=== PATIENT | female | born 1950 | race American Indian/Alaskan Native ===

== ENCOUNTER 2022-02-13 21:26 | Inpatient (IN) | payer MEDICARE ==
[2022-02-13 23:51] LABS: Basophils % (Auto) 0.2 % (0.0-1.8); Hematocrit 20.9 % (30.3-42.9); Hemoglobin 6.8 gm/dl (10.1-14.3); Lymphocytes # (Auto) 0.7 K/mm3 (1.2-5.4); Lymphocytes % (Auto) 7.6 % (13.4-35.0); Mean Corpuscular HGB Conc 33 % (30-34); Mean Corpuscular Volume 87 fl (79-97); Monocytes # (Auto) 0.5 K/mm3 (0.0-0.8); Monocytes % (Auto) 5.4 % (0.0-7.3); Platelet Count 184 K/mm3 (140-440); Red Blood Count 2.39 M/mm3 (3.65-5.03); Red Cell Distribution Width 16.1 % (13.2-15.2)
[2022-02-14 00:03] LABS: BUN/Creatinine Ratio 21; Blood Urea Nitrogen 21 mg/dL (7-17); Calcium 8.5 mg/dL (8.4-10.2); Hemolysis Index 2
[2022-02-14] MEDS ORDERED: SODIUM CHLORIDE 0.9% 500 ML 500 ML IV ONE ×3 (10:58→22:08)
[2022-02-14 12:26] LABS: Basophils % (Auto) 0.4 % (0.0-1.8); Eosinophils % (Auto) 0.6 % (0.0-4.3); Hemoglobin 6.3 gm/dl (10.1-14.3); Lymphocytes # (Auto) 0.8 K/mm3 (1.2-5.4); Lymphocytes % (Auto) 12.8 % (13.4-35.0); Mean Corpuscular HGB Conc 32 % (30-34); Mean Corpuscular Volume 87 fl (79-97); Monocytes # (Auto) 0.6 K/mm3 (0.0-0.8); Monocytes % (Auto) 8.7 % (0.0-7.3); Platelet Count 173 K/mm3 (140-440); Red Blood Count 2.22 M/mm3 (3.65-5.03); Red Cell Distribution Width 15.6 % (13.2-15.2)
[2022-02-14 13:05] LABS: Hematocrit 19.3 % (30.3-42.9)
--- NOTE | 2022-02-14 14:01 | Emergency Department Report ---
ED GI Bleed HPI - General Chief complaint: GI Bleed Stated complaint: BLEEDING FROM RECTUM Time Seen by Provider: 02/14/22 10:41 Source: patient Mode of arrival: Ambulatory Limitations: No Limitations - History of Present Illness Initial comments: 71-year-old female with a past medical history of diverticulosis presents to the hospital complaining of intermittent rectal bleeding for the past 5 days. Patient initially had bleeding 4 to 5 days ago. She had significant rectal bleeding even prior to making it to the bathroom and had a syncopal episode. Bleeding stopped and recurred last night. Patient denies abdominal pain, nausea, vomiting, chest pain, shortness of breath. She does continue to have intermittent lightheadedness with standing and ambulation. Last diverticular bleed was 2006 with need for blood transfusion at that time. Patient cannot recall when she received her most recent colonoscopy. - Related Data Home Medications Medication Instructions Recorded Confirmed Last Taken lisinopriL [Lisinopril] 20 mg PO QDAY 02/14/22 02/16/22 02/13/22 Previous Rx's Medication Instructions Recorded Last Taken Type Ferrous Gluconate [Fergon 240 MG 240 mg PO QDAY 100 Days #100 02/16/22 Unknown Rx tab] Allergies Allergy/AdvReac Type Severity Reaction Status Date / Time No Known Allergies Allergy Verified 02/16/22 07:14 ED Review of Systems ROS: Stated complaint: BLEEDING FROM RECTUM Other details as noted in HPI Comment: All other systems reviewed and negative ED Past Medical Hx - Past Medical History Previous Medical History?: Yes Additional medical history: diverticulitis - Social History Smoking Status: Never Smoker - Medications Home Medications: Home Medications Medication Instructions Recorded Confirmed Last Taken Type lisinopriL [Lisinopril] 20 mg PO QDAY 02/14/22 02/16/22 02/13/22 History Ferrous Gluconate [Fergon 240 MG 240 mg PO QDAY 100 Days #100 02/16/22 Unknown Rx tab] ED Physical Exam - General Limitations: No Limitations - Other Other exam information: General: No acute distress Head: Atraumatic Eyes: normal appearance ENT: Moist mucous membranes Neck: Normal appearance, no midline tenderness Chest: Clear to auscultation bilaterally CV: Regular rate and rhythm Abdomen: Soft, normal bowel sounds, nontender, nondistended, no rebound or guarding Rectal: No external hemorrhoids noted. maroon-colored blood in rectum. Guaiac positive Back: Normal inspection Extremity: Normal inspection, full range of motion Neuro: Alert O x 3, no facial asymmetry, speech clear, no gross motor sensory deficit Psych: Appropriate behavior Skin: No rash ED Course Vital Signs 02/13/22 02/14/22 02/14/22 21:26 08:53 09:00 Temperature 98.6 F Pulse Rate 97 H 96 H 87 Respiratory 18 18 Rate Blood Pressure 146/64 Blood Pressure 120/61 123/69 [Right] O2 Sat by Pulse 99 99 Oximetry 02/14/22 02/14/22 02/14/22 09:15 09:30 09:45 Temperature Pulse Rate 86 87 81 Respiratory Rate Blood Pressure 140/66 137/63 125/53 Blood Pressure [Right] O2 Sat by Pulse 100 100 100 Oximetry 02/14/22 02/14/22 02/14/22 10:00 10:15 11:30 Temperature Pulse Rate 83 85 85 Respiratory 17 Rate Blood Pressure 130/57 130/57 138/69 Blood Pressure [Right] O2 Sat by Pulse 99 100 100 Oximetry 02/14/22 02/14/22 02/14/22 11:45 12:00 12:15 Temperature Pulse Rate 85 86 83 Respiratory 20 17 16 Rate Blood Pressure 145/62 145/39 138/59 Blood Pressure [Right] O2 Sat by Pulse 98 99 100 Oximetry 02/14/22 02/14/22 02/14/22 12:25 12:30 12:45 Temperature 98.7 F Pulse Rate 87 86 85 Respiratory 18 19 14 Rate Blood Pressure 130/61 121/59 Blood Pressure 120/69 [Right] O2 Sat by Pulse 99 99 100 Oximetry 02/14/22 02/14/22 02/14/22 12:51 13:00 13:03 Temperature Pulse Rate 80 85 83 Respiratory 15 15 18 Rate Blood Pressure 121/59 130/61 Blood Pressure 129/59 [Right] O2 Sat by Pulse 99 100 99 Oximetry 02/14/22 02/14/22 02/14/22 13:04 13:10 13:35 Temperature 98.9 F Pulse Rate 80 96 H Respiratory 19 17 Rate Blood Pressure 121/59 145/39 Blood Pressure [Right] O2 Sat by Pulse 100 100 Oximetry 02/14/22 02/14/22 02/14/22 13:41 13:51 14:00 Temperature Pulse Rate 83 81 77 Respiratory 17 18 18 Rate Blood Pressure 145/39 140/58 145/71 Blood Pressure [Right] O2 Sat by Pulse 99 98 99 Oximetry 02/14/22 02/14/22 02/14/22 14:11 14:16 14:17 Temperature 98.3 F Pulse Rate 91 H 72 92 H Respiratory 20 18 16 Rate Blood Pressure 145/71 117/54 Blood Pressure 132/66 [Right] O2 Sat by Pulse 99 Oximetry 02/14/22 02/14/22 02/14/22 14:20 14:43 14:51 Temperature Pulse Rate 71 80 72 Respiratory 18 17 17 Rate Blood Pressure 145/71 145/71 107/51 Blood Pressure [Right] O2 Sat by Pulse 99 100 100 Oximetry 02/14/22 02/14/22 02/14/22 15:01 15:11 15:21 Temperature Pulse Rate 79 82 77 Respiratory 18 17 18 Rate Blood Pressure 107/51 107/51 145/71 Blood Pressure [Right] O2 Sat by Pulse 99 100 100 Oximetry 02/14/22 02/14/22 02/14/22 15:31 15:41 15:51 Temperature Pulse Rate 75 72 77 Respiratory 19 19 19 Rate Blood Pressure 145/71 145/71 121/57 Blood Pressure [Right] O2 Sat by Pulse 100 100 100 Oximetry - Consultations Consultation #1: 02/14/22 15:[address] Kevin Mc with GI. Recommend clear liquid diet. Will consult ED Medical Decision Making - Lab Data Result diagrams: 02/15/22 22:26 02/15/22 03:39 Lab Results 02/13/22 02/13/22 02/14/22 Range/Units 23:31 23:31 10:32 WBC 9.2 (4.5-11.0) K/mm3 RBC 2.39 L (3.65-5.03) M/mm3 Hgb 6.8 L (10.1-14.3) gm/dl Hct 20.9 L (30.3-42.9) % MCV 87 (79-97) fl MCH 29 (28-32) pg MCHC 33 (30-34) % RDW 16.1 H (13.2-15.2) % Plt Count 184 (140-440) K/mm3 Lymph % (Auto) 7.6 L (13.4-35.0) % [place] % (Auto) 5.4 (0.0-7.3) % Eos % (Auto) 0.0 (0.0-4.3) % Baso % (Auto) 0.2 (0.0-1.8) % Lymph # (Auto) 0.7 L (1.2-5.4) K/mm3 [place] # (Auto) 0.5 (0.0-0.8) K/mm3 Eos # (Auto) 0.0 (0.0-0.4) K/mm3 Baso # (Auto) 0.0 (0.0-0.1) K/mm3 Seg Neutrophils % 86.8 H (40.0-70.0) % Seg Neutrophils # 8.0 H (1.8-7.7) K/mm3 Sodium 145 (137-145) mmol/L Potassium 4.3 (3.6-5.0) mmol/L Chloride 110.1 H (98-107) mmol/L Carbon Dioxide 23 (22-30) mmol/L Anion Gap 16 mmol/L BUN 21 H (7-17) mg/dL Creatinine 1.0 (0.6-1.2) mg/dL Estimated GFR > 60 ml/min BUN/Creatinine Ratio 21 % Glucose 105 H (65-100) mg/dL Calcium 8.5 (8.4-10.2) mg/dL Blood Type A POSITIVE Antibody Screen Negative Crossmatch See Detail 02/14/22 Range/Units 10:51 WBC 6.6 (4.5-11.0) K/mm3 RBC 2.22 L (3.65-5.03) M/mm3 Hgb 6.3 L (10.1-14.3) gm/dl Hct 19.3 L* (30.3-42.9) % MCV 87 (79-97) fl MCH 28 (28-32) pg MCHC 32 (30-34) % RDW 15.6 H (13.2-15.2) % Plt Count 173 (140-440) K/mm3 Lymph % (Auto) 12.8 L (13.4-35.0) % [place] % (Auto) 8.7 H (0.0-7.3) % Eos % (Auto) 0.6 (0.0-4.3) % Baso % (Auto) 0.4 (0.0-1.8) % Lymph # (Auto) 0.8 L (1.2-5.4) K/mm3 [place] # (Auto) 0.6 (0.0-0.8) K/mm3 Eos # (Auto) 0.0 (0.0-0.4) K/mm3 Baso # (Auto) 0.0 (0.0-0.1) K/mm3 Seg Neutrophils % 77.5 H (40.0-70.0) % Seg Neutrophils # 5.1 (1.8-7.7) K/mm3 Sodium (137-145) mmol/L Potassium (3.6-5.0) mmol/L Chloride (98-107) mmol/L Carbon Dioxide (22-30) mmol/L Anion Gap mmol/L BUN (7-17) mg/dL Creatinine (0.6-1.2) mg/dL Estimated GFR ml/min BUN/Creatinine Ratio % Glucose (65-100) mg/dL Calcium (8.4-10.2) mg/dL Blood Type Antibody Screen Crossmatch - EKG Data -: EKG Interpreted by Mi EKG shows normal: sinus rhythm, ST-T waves Rate: normal - Radiology Data Radiology results: report reviewed CTA ABDOMEN AND PELVIS WITHOUT AND WITH IV CONTRAST INDICATION: Rectal bleeding. History of diverticulosis. TECHNIQUE: Axial CT images were obtained through the abdomen and pelvis before and after injection of 100 cc Omni 350 IV contrast. 3 plane MIP reconstructions were produced. All CT scans at this location are performed using CT dose reduction for ALARA by means of automated exposure control. COMPARISON: None available. FINDINGS: VASCULAR FINDINGS: AORTA: There is mild generalized atherosclerosis without visualization of an aneurysm, dissection or other significant abnormality. CELIAC TRUNK: No significant abnormality. SUPERIOR MESENTERIC ARTERY: No significant abnormality. RENAL ARTERIES: There is mild bilateral nonobstructive atherosclerosis without other significant abnormalities. INFERIOR MESENTERIC ARTERY: No significant abnormality. RIGHT ILIAC ARTERIES: There is mild nonobstructive atherosclerosis without other significant abnormalities. LEFT ILIAC ARTERIES: Moderate nonobstructive atherosclerosis is noted without other significant abnormalities. FEMORAL ARTERIES: Mild nonobstructive left common femoral atherosclerosis is noted without other significant abnormalities. NONTARGET STRUCTURES: ABDOMEN: No areas of active contrast extravasation are seen along the GI tract to suggest active bleeding. Scattered noninflamed diverticulosis is seen along the colon without other significant abnormalities. PELVIS: No significant abnormality. SKELETAL: No significant abnormality. ADDITIONAL FINDINGS: None. IMPRESSION: 1. No evidence of an active GI bleed or other acute findings. 2. Noninflamed colonic diverticulosis with additional findings as above. - Medical Decision Making 71-year-old female with a past medical history diverticular bleed presents to the hospital complaining of rectal bleeding intermittent for the past 4 days. Patient had a syncopal episode several days ago. Patient has anemia with normal vital signs. 1 unit of PRBCs ordered. Grossly bloody stools on exam. CT angiogram and pelvis does not show active bleeding or extravasation of contrast. GI paged and consult ordered. Hospitalist to admit. Bridge telemetry orders placed Critical Care Time: Yes Critical care time in (mins) excluding proc time.: 40 Critical care attestation.: If time is entered above; I have spent that time in minutes in the direct care of this critically ill patient, excluding procedure time. Critical Care Time: 40 Minutes of critical care time excluding procedures were used in the care of the patient. I I discussed treatment plan with the nursing team members. I reviewed electronic record. I spoke with family to obtain medical history. Patient required multiple interventions and reassessments. Case discussed with GI. Hospitalist to admit. ED Disposition Clinical Impression: Rectal bleed, Diverticulosis, Symptomatic anemia Disposition: ADMITTED INPATIENT Is pt being admited?: Yes Condition: Stable Time of Disposition: 14:55
--- NOTE | 2022-02-14 14:28 | Cat Scan Report ---
CTA ABDOMEN AND PELVIS WITHOUT AND WITH IV CONTRAST INDICATION: Rectal bleeding. History of diverticulosis. TECHNIQUE: Axial CT images were obtained through the abdomen and pelvis before and after injection of 100 cc Omn i 350 IV contrast. 3 plane MIP reconstructions were produced. All CT scans at this location are perfo rmed using CT dose reduction for ALARA by means of automated exposure control. COMPARISON: None available. FINDINGS: VASCULAR FINDINGS: AORTA: There is mild generalized atherosclerosis without visualization of an aneurysm, dissection or other significant abnormality. CELIAC TRUNK: No significant abnormality. SUPERIOR MESENTERIC ARTERY: No significant abnormality. RENAL ARTERIES: There is mild bilateral nonobstructive atherosclerosis without other significant abno rmalities. INFERIOR MESENTERIC ARTERY: No significant abnormality. RIGHT ILIAC ARTERIES: There is mild nonobstructive atherosclerosis without other significant abnormal ities. LEFT ILIAC ARTERIES: Moderate nonobstructive atherosclerosis is noted without other significant abnor malities. FEMORAL ARTERIES: Mild nonobstructive left common femoral atherosclerosis is noted without other sign ificant abnormalities. NONTARGET STRUCTURES: ABDOMEN: No areas of active contrast extravasation are seen along the GI tract to suggest active blee ding. Scattered noninflamed diverticulosis is seen along the colon without other significant abnormal ities. PELVIS: No significant abnormality. SKELETAL: No significant abnormality. ADDITIONAL FINDINGS: None. IMPRESSION: 1. No evidence of an active GI bleed or other acute findings. 2. Noninflamed colonic diverticulosis with additional findings as above. Signer Name: Lukas Leonard MD Signed: 02/14/2022 2:23 PM Workstation Name: [employer]
[2022-02-14] MEDS ORDERED: ACETAMINOPHEN 325 MG TAB PO PRN ×2 (14:46→20:56)
[2022-02-14] MEDS ORDERED: ONDANSETRON 4 MG/2 ML INJ IV PRN ×2 (14:46→20:56)
[2022-02-14] MEDS ORDERED: MORPHINE 2 MG/1 ML INJ IV PRN (14:47)
[2022-02-14 17:16] LABS: Hemoglobin 7.1 gm/dl (10.1-14.3)
[2022-02-14] MEDS ORDERED: POLYETHYLENE GLYCOL/ELECT SOLN 4000 ML PO ONE ×2 (20:17→23:00)
--- NOTE | 2022-02-14 20:55 | History and Physical Report ---
History of Present Illness Date of examination: 02/14/22 Date of admission: 02/14/22 14:46 Chief complaint: Lower GI bleed since he a.m. History of present illness: 71-year-old female with a past medical history of diverticulosis presents to the hospital complaining of intermittent rectal bleeding for the past 5 days. Patient initially had bleeding 4 to 5 days ago. She had significant rectal bleeding even prior to making it to the bathroom and had a syncopal episode. Bleeding stopped and recurred last night. Patient denies abdominal pain, nausea, vomiting, chest pain, shortness of breath. She does continue to have intermittent lightheadedness with standing and ambulation. Last diverticular bleed was 2006 with need for blood transfusion at that time. Patient cannot recall when she received her most recent colonoscopy. - Past Medical History -Diverticular bleed in the past around 2006 --surgical history None - Family history --Htn - Social History Smoking Status: Never Smoker Review of Systems ROS: Stated complaint: BLEEDING FROM RECTUM Other details as noted in HPI Comment: All other systems reviewed and negative Medications and Allergies Allergies Allergy/AdvReac Type Severity Reaction Status Date / Time No Known Allergies Allergy Verified 02/13/22 21:34 Home Medications Medication Instructions Recorded Confirmed Last Taken Type lisinopriL [Lisinopril] 20 mg PO QDAY 02/14/22 02/14/22 02/13/22 History Active Meds: Active Medications Acetaminophen (Acetaminophen 325 Mg Tab) 650 mg PO Q4H PRN PRN Reason: Pain MILD(1-3)/Fever >100.5/[place] Morphine Sulfate (Morphine 2 Mg/1 Ml Inj) 2 mg IV Q4H PRN PRN Reason: Pain, Moderate (4-6) Ondansetron HCl (Ondansetron 4 Mg/2 Ml Inj) 4 mg IV Q8H PRN PRN Reason: Nausea And Vomiting Sodium Chloride (Sodium Chloride 0.9% 10 Ml Flush Syringe) 10 ml IV BID CYDNEY Sodium Chloride (Sodium Chloride 0.9% 10 Ml Flush Syringe) 10 ml IV PRN PRN PRN Reason: LINE FLUSH Exam - Constitutional Vitals: Temp Pulse Resp BP Pulse Ox 98.3 F 83 16 92/30 99 02/14/22 19:14 02/14/22 19:14 02/14/22 19:14 02/14/22 19:14 02/14/22 19:14 General appearance: Present: no acute distress, well-nourished - EENT Eyes: Present: PERRL ENT: hearing intact, clear oral mucosa - Neck Neck: Present: supple, normal ROM - Respiratory Respiratory effort: normal Respiratory: bilateral: CTA - Cardiovascular Heart rate: 89 Rhythm: regular Heart Sounds: Present: S1 & S2. Absent: rub, click - Extremities Extremities: no ischemia, pulses symmetrical, No edema Peripheral Pulses: within normal limits - Abdominal General gastrointestinal: Present: soft, non-tender, non-distended, normal bowel sounds Female genitourinary: Present: normal - Rectal Rectal Exam: stool bloody - Integumentary Integumentary: Present: clear, warm, dry - Musculoskeletal Musculoskeletal: gait normal, strength equal bilaterally - Psychiatric Psychiatric: appropriate mood/affect, intact judgment & insight - Neurologic Neurologic: CNII-XII intact, moves all extremities Results - Labs CBC & Chem 7: 02/15/22 03:39 02/15/22 03:39 Labs: Laboratory Last Values WBC 6.6 K/mm3 (4.5-11.0) 02/14/22 10:51 RBC 2.22 M/mm3 (3.65-5.03) L 02/14/22 10:51 Hgb 7.1 gm/dl (10.1-14.3) L 02/14/22 17:00 Hct 22.0 % (30.3-42.9) L 02/14/22 17:00 MCV 87 fl (79-97) 02/14/22 10:51 MCH 28 pg (28-32) 02/14/22 10:51 MCHC 32 % (30-34) 02/14/22 10:51 RDW 15.6 % (13.2-15.2) H 02/14/22 10:51 Plt Count 173 K/mm3 (140-440) 02/14/22 10:51 Lymph % (Auto) 12.8 % (13.4-35.0) L 02/14/22 10:51 [place] % (Auto) 8.7 % (0.0-7.3) H 02/14/22 10:51 Eos % (Auto) 0.6 % (0.0-4.3) 02/14/22 10:51 Baso % (Auto) 0.4 % (0.0-1.8) 02/14/22 10:51 Lymph # (Auto) 0.8 K/mm3 (1.2-5.4) L 02/14/22 10:51 [place] # (Auto) 0.6 K/mm3 (0.0-0.8) 02/14/22 10:51 Eos # (Auto) 0.0 K/mm3 (0.0-0.4) 02/14/22 10:51 Baso # (Auto) 0.0 K/mm3 (0.0-0.1) 02/14/22 10:51 Seg Neutrophils % 77.5 % (40.0-70.0) H 02/14/22 10:51 Seg Neutrophils # 5.1 K/mm3 (1.8-7.7) 02/14/22 10:51 Sodium 145 mmol/L (137-145) 02/13/22 23:31 Potassium 4.3 mmol/L (3.6-5.0) 02/13/22 23:31 Chloride 110.1 mmol/L (98-107) H 02/13/22 23:31 Carbon Dioxide 23 mmol/L (22-30) 02/13/22 23:31 Anion Gap 16 mmol/L 02/13/22 23:31 BUN 21 mg/dL (7-17) H 02/13/22 23:31 Creatinine 1.0 mg/dL (0.6-1.2) 02/13/22 23:31 Estimated GFR > 60 ml/min 02/13/22 23:31 BUN/Creatinine Ratio 21 % 02/13/22 23:31 Glucose 105 mg/dL (65-100) H 02/13/22 23:31 Calcium 8.5 mg/dL (8.4-10.2) 02/13/22 23:31 Blood Type A POSITIVE 02/14/22 10:32 Antibody Screen Negative 02/14/22 10:32 Crossmatch See Detail 02/14/22 10:32 Short CBC 02/14/22 02/14/22 02/14/22 Range/Units 10:51 17:00 21:03 WBC 6.6 (4.5-11.0) K/mm3 Hgb 6.3 L 7.1 L 6.3 L (10.1-14.3) gm/dl Hct 19.3 L* 22.0 L 19.0 L* (30.3-42.9) % Plt Count 173 (140-440) K/mm3 02/15/22 Range/Units 03:39 WBC (4.5-11.0) K/mm3 Hgb 8.1 L (10.1-14.3) gm/dl Hct 23.6 L (30.3-42.9) % Plt Count (140-440) K/mm3 BMP 02/15/22 03:39 Sodium 145 Potassium 4.2 Chloride 114.7 H Carbon Dioxide 22 BUN 27 H Creatinine 0.8 Glucose 102 H Calcium 8.1 L Microbiology: Microbiology 02/14/22 10:12 Stool Stool Occult Blood ([place]) - Final - Imaging and Cardiology Imaging and Cardiology: CT abdomen No active GI bleed or acute findings Noninflamed colonic diverticulosis with additional findings as above Wong/IV: Voiding Method Toilet Assessment and Plan Advance Directives: Yes (Full code) VTE prophylaxis?: Chemical Plan of care discussed with patient/family: Yes - Patient Problems (1) Symptomatic anemia Current Visit: Yes Status: Acute Plan to address problem: Transfuse 1 to 2 units of blood Hemoglobin and hematocrit every 8 hours and transfuse if necessary (2) Lower GI bleed Current Visit: Yes Status: Acute Plan to address problem: Possible diverticular bleed GI consult requested Possible colonoscopy tomorrow (3) DVT prophylaxis Current Visit: Yes Status: Acute Plan to address problem: On SCDs and GI prophylaxis (4) Advance care planning Current Visit: Yes Status: Acute (5) Advance care planning Current Visit: Yes Status: Acute Plan to address problem: Disease education conducted care plan discussed diagnosis discussed prognosis discussed. Patient acknowledged understanding with care plan. +30 minutes. Patient is full code.
[2022-02-14] MEDS ORDERED: METOCLOPRAMIDE 10 MG/2 ML INJ IV PRN (20:56)
[2022-02-14] MEDS ORDERED: SODIUM CHLORIDE 0.9% 1000 ML 1,000 ML IV SCH (21:00)
[2022-02-14 21:47] LABS: Hemoglobin 6.3 gm/dl (10.1-14.3)
[2022-02-14] MEDS: PANTOPRAZOLE 40 MG INJ IV SCH (22:42)
[2022-02-15 04:25] LABS: Hematocrit 23.6 % (30.3-42.9); Hemoglobin 8.1 gm/dl (10.1-14.3)
[2022-02-15 04:39] LABS: BUN/Creatinine Ratio 34; Blood Urea Nitrogen 27 mg/dL (7-17); Calcium 8.1 mg/dL (8.4-10.2); Hemolysis Index 12
--- NOTE | 2022-02-15 05:25 | Consultation ---
DATE OF CONSULTATION: 02/14/2022 REFERRING PHYSICIAN: Dr. Arya Avila INDICATION: GI bleed. HISTORY OF PRESENT ILLNESS: The patient is a 71-year-old black female with a history of diverticular bleed in the past, now presents with rectal bleeding. The patient reports 4-5 days ago, she started having rectal bleeding over the last 24 hours, she has had multiple bouts of bright red blood per rectum. The patient denies any hematemesis. She reports she went to the bathroom, had a syncopal episode and subsequently came to the emergency room thereafter. The patient reports she had diverticular bleed in 2006. She denies any recent NSAID or aspirin. Denies any weight loss. No other specific complaints. PAST MEDICAL HISTORY: Diverticular bleed. MEDICATIONS: Reviewed and updated in chart. ALLERGIES: No known drug allergies. SOCIAL HISTORY: Denies alcohol, tobacco or drug abuse. FAMILY HISTORY: Negative for colon cancer, IBD, or liver disease. REVIEW OF SYSTEMS: GENERAL: Reports some weakness. HEENT: Denies visual complaints or tinnitus. PULMONARY: No shortness of breath, chest pain. GASTROINTESTINAL: Reports rectal bleeding. All points of a 13-point review of system otherwise negative. PHYSICAL EXAMINATION: VITAL SIGNS: Temperature of 98.3, pulse 83, respirations 18, blood pressure 121/60. GENERAL: Fairly nourished with no acute distress. HEENT: Pupils round and reactive. PULMONARY: Rhonchi. CARDIOVASCULAR: Regular rate and rhythm. Normal S1, S2. ABDOMEN: Positive bowel sounds. SKIN: No obvious rashes. LABORATORY DATA: Pertinent for white count of 6.6, hemoglobin and hematocrit 6.3 and 19.3, platelet count of 173. Chem-7 within normal limits. ASSESSMENT: A 71-year-old female with history of diverticular bleed in the past, now presents with 4-5 days intermittent, now worsening over the last 24 hours of rectal bleeding. Possibility of diverticular bleed. Management as noted below. It should be noted CTA was negative. ASSESSMENT AND PLAN: The patient presents with a history of diverticular bleed, now presents with acute bright red blood per rectum with a negative CTA. Probably diverticular bleed. PLAN: 1. Follow hematocrit and transfuse as needed. 2. Avoid NSAIDs and aspirin. 3. PPI daily. 4. Plan EGD, colonoscopy in the a.m. TID: [id number] RECEIPT: [id number] ALIS/NENA/PANKAJ/KLEVER
[2022-02-15] MEDS ORDERED: EPINEPHrine 1 MG/10 ML SYRINGE ONE (08:48)
--- NOTE | 2022-02-15 09:13 | Anesthesia Day of Surgery ---
Anesthesia Day of Surgery - Day of Surgery Patient Examined: Yes Patient H&P Reviewed: Yes Patient is NPO: Yes
--- NOTE | 2022-02-15 09:13 | Anesthesia Consultation ---
Anesthesia Consult and Med Hx Date of service: 02/15/22 - Airway Anesthetic Teeth Evaluation: Good, Chipped (upper left front) ROM Head & Neck: Adequate Mental/Hyoid Distance: Adequate Mallampati Class: Class II Intubation Access Assessment: Probably Good - Pre-Operative Health Status ASA Pre-Surgery Classification: ASA3 Proposed Anesthetic Plan: MAC - Cardiovascular System Hx Hypertension: Yes - Gastrointestinal Hx Gastroesophageal Reflux Disease: Yes (GI bleed requiring transfusion x3) - Hematic Hx Anemia: Yes
[2022-02-15] MEDS ORDERED: propofoL 200 MG/20 ML VIAL IV ONE ×2 (09:20→09:36)
--- NOTE | 2022-02-15 10:48 | Post Operative Note ---
Pre-op diagnosis: gi bleed Post-op diagnosis: same Findings: EGD: mild gastritis - negative other Colon: old blood througout colon with noted more fresh appearing right colon - moderated right/sigmoid diverticulosis - no active bleeding noted - medium internal hemorrhoids - negative other Procedure: EGD/colonoscopy Anesthesia: MAC Surgeon: ALISTAIR ZAVALA Estimated blood loss: none Pathology: list Specimen disposition: to lab Condition: stable Disposition: floor
[2022-02-15] MEDS: PANTOPRAZOLE 40 MG INJ IV SCH ×2 (11:22→21:20)
[2022-02-15 13:25] LABS: Hematocrit 21.8 % (30.3-42.9); Hemoglobin 7.4 gm/dl (10.1-14.3)
--- NOTE | 2022-02-15 18:58 | Post Anesthesia Evaluation ---
- Post Anesthesia Evaluation Patient Participated: Yes Airway Patent: Yes Stable Respiratory Function: Yes Nausea/Vomiting: No Temp > 96.8F: Yes Pain Manageable: Yes Adequeate Hydration: Yes Anesthesia Complications: No Block Receding Appropriately: Not Applicable Patient on Ventilator: No
--- NOTE | 2022-02-15 22:21 | Progress Note ---
Assessment and Plan - Patient Problems (1) Symptomatic anemia Current Visit: Yes Status: Acute Plan to address problem: Transfuse 1 to 2 units of blood Hemoglobin and hematocrit every 8 hours and transfuse if necessary (2) Lower GI bleed Current Visit: Yes Status: Acute Plan to address problem: Diverticular bleed Stopped Gallbladder: Colonoscopy and EGD notes appreciated Will discharge in a.m. if stable and no further GI bleed (3) DVT prophylaxis Current Visit: Yes Status: Acute Plan to address problem: On SCDs and GI prophylaxis (4) Advance care planning Current Visit: Yes Status: Acute (5) Advance care planning Current Visit: Yes Status: Acute Plan to address problem: Disease education conducted care plan discussed diagnosis discussed prognosis discussed. Patient acknowledged understanding with care plan. +30 minutes. Patient is full code. Subjective Date of service: 02/15/22 Principal diagnosis: Lower GI bleed Interval history: 71-year-old female with a past medical history of diverticulosis presents to the hospital complaining of intermittent rectal bleeding for the past 5 days. Patient initially had bleeding 4 to 5 days ago. She had significant rectal bleeding even prior to making it to the bathroom and had a syncopal episode. Bleeding stopped and recurred last night. Patient denies abdominal pain, nausea, vomiting, chest pain, shortness of breath. She does continue to have intermittent lightheadedness with standing and ambulation. Last diverticular bleed was 2006 with need for blood transfusion at that time. Patient cannot recall when she received her most recent colonoscopy. 02/15/22 EGD: mild gastritis - negative other Colon: old blood througout colon with noted more fresh appearing right colon - moderated right/sigmoid diverticulosis - no active bleeding noted - medium internal hemorrhoids - negative other Objective - Constitutional Vitals: Vital Signs - 12hr 02/15/22 02/15/22 02/15/22 11:31 16:01 16:36 Temperature 98.6 F 98.5 F Pulse Rate 86 82 Respiratory 18 16 Rate Blood Pressure 165/63 122/63 Blood Pressure 122/63 [Right] O2 Sat by Pulse 99 Oximetry 02/15/22 02/15/22 02/15/22 18:00 19:10 20:51 Temperature 98.6 F Pulse Rate 84 85 84 Respiratory 16 Rate Blood Pressure 113/56 Blood Pressure [Right] O2 Sat by Pulse 97 Oximetry 02/15/22 20:54 Temperature Pulse Rate Respiratory Rate Blood Pressure Blood Pressure [Right] O2 Sat by Pulse 97 Oximetry General appearance: Present: no acute distress, well-nourished - EENT Eyes: PERRL, EOM intact ENT: hearing intact, clear oral mucosa Ears: bilateral: normal - Neck Neck: supple, normal ROM - Respiratory Respiratory effort: normal Respiratory: bilateral: CTA - Breasts Breasts: normal - Cardiovascular Heart rate: 78 Rhythm: regular Heart Sounds: Present: S1 & S2. Absent: gallop, rub Extremities: pulses intact, No edema, normal color, Full ROM - Gastrointestinal General gastrointestinal: Present: soft, non-tender, non-distended, normal bowel sounds - Genitourinary Female genitourinary: normal - Integumentary Integumentary: clear, warm, dry - Musculoskeletal Musculoskeletal: 1, strength equal bilaterally - Neurologic Neurologic: moves all extremities - Psychiatric Psychiatric: memory intact, appropriate mood/affect, intact judgment & insight - Labs CBC & Chem 7: 02/15/22 22:26 02/15/22 03:39 Labs: Abnormal lab results 02/14/22 02/15/22 02/15/22 Range/Units 10:32 03:39 03:39 Hgb 8.1 L (10.1-14.3) gm/dl Hct 23.6 L (30.3-42.9) % Chloride 114.7 H (98-107) mmol/L BUN 27 H (7-17) mg/dL Glucose 102 H (65-100) mg/dL Calcium 8.1 L (8.4-10.2) mg/dL Crossmatch See Detail 02/15/22 Range/Units 13:06 Hgb 7.4 L (10.1-14.3) gm/dl Hct 21.8 L (30.3-42.9) % Chloride (98-107) mmol/L BUN (7-17) mg/dL Glucose (65-100) mg/dL Calcium (8.4-10.2) mg/dL Crossmatch
--- NOTE | 2022-02-15 22:31 | Discharge Summary ---
Providers - Providers Date of Admission: 02/14/22 14:46 Date of discharge: 02/16/22 Attending physician: SANDY HERRERA 02/14/22 14:51 Consult to Physician [CONS] Urgent Comment: Consulting Provider: ALISTAIR ZAVALA Physician Instructions: Reason For Exam: GI bleed Primary care physician: [employer] Hospitalization Condition: Stable Hospital course: Subjective Date of service: 02/16/22 Principal diagnosis: Lower GI bleed Interval history: 71-year-old female with a past medical history of diverticulosis presents to the hospital complaining of intermittent rectal bleeding for the past 5 days. Patient initially had bleeding 4 to 5 days ago. She had significant rectal bleeding even prior to making it to the bathroom and had a syncopal episode. Bleeding stopped and recurred last night. Patient denies abdominal pain, nausea, vomiting, chest pain, shortness of breath. She does continue to have intermittent lightheadedness with standing and ambulation. Last diverticular bleed was 2006 with need for blood transfusion at that time. Patient cannot recall when she received her most recent colonoscopy. 02/15/22 EGD: mild gastritis - negative other Colon: old blood througout colon with noted more fresh appearing right colon - moderated right/sigmoid diverticulosis - no active bleeding noted - medium internal hemorrhoids - negative other Assessment and Plan - Patient Problems (1) Symptomatic anemia Current Visit: Yes Status: Acute Plan to address problem: Transfuse 1 to 2 units of blood Hemoglobin and hematocrit every 8 hours and transfuse if necessary (2) Lower GI bleed Current Visit: Yes Status: Acute Plan to address problem: Diverticular bleed Stopped Gallbladder: Colonoscopy and EGD notes appreciated Will discharge in a.m. if stable and no further GI bleed (3) DVT prophylaxis Current Visit: Yes Status: Acute Plan to address problem: On SCDs and GI prophylaxis (4) Advance care planning Current Visit: Yes Status: Acute (5) Advance care planning Current Visit: Yes Status: Acute Plan to address problem: Disease education conducted care plan discussed diagnosis discussed prognosis discussed. Patient acknowledged understanding with care plan. +30 minutes. Patient is full code. Disposition: HOME / SELF CARE / HOMELESS Final Discharge Diagnosis (Prints w/discharge instructions): Symptomatic anemia. Lower GI bleed. Diverticulosis Time spent for discharge: 35 minutes - Discharge Diagnoses (1) Symptomatic anemia Status: Acute (2) Lower GI bleed Status: Acute (3) DVT prophylaxis Status: Acute (4) Advance care planning Status: Acute (5) Advance care planning Status: Acute Core Measure Documentation - Palliative Care Palliative Care/ Comfort Measures: Not Applicable - Core Measures Any of the following diagnoses?: none Exam - Constitutional Vitals: Temp Pulse Resp BP Pulse Ox 98.6 F 84 16 113/56 97 02/15/22 19:10 02/15/22 20:51 02/15/22 19:10 02/15/22 19:10 02/15/22 20:54 General appearance: Present: no acute distress, well-nourished - EENT Eyes: Present: PERRL ENT: hearing intact, clear oral mucosa - Neck Neck: Present: supple, normal ROM - Respiratory Respiratory effort: normal Respiratory: bilateral: CTA - Cardiovascular Heart rate: 78 Rhythm: regular Heart Sounds: Present: S1 & S2. Absent: rub, click - Extremities Extremities: no ischemia, pulses intact, pulses symmetrical, No edema Peripheral Pulses: within normal limits - Abdominal General gastrointestinal: Present: soft, non-tender, non-distended, normal bowel sounds Female genitourinary: Present: normal - Integumentary Integumentary: Present: clear, warm, dry - Musculoskeletal Musculoskeletal: gait normal, strength equal bilaterally - Psychiatric Psychiatric: appropriate mood/affect, intact judgment & insight - Neurologic Neurologic: CNII-XII intact, moves all extremities Plan Activity: no restrictions Diet: regular Follow up with: ALISTAIR ZAVALA MD [Staff Physician] - 7 Days PRIMARY CARE, [Primary Care Provider] - 3-5 Days
[2022-02-15 22:38] LABS: Hematocrit 20.8 % (30.3-42.9)
[2022-02-16 05:33] VITALS: BP 124/57
--- NOTE | 2022-02-16 08:46 | Electrocardiograph Report ---
[facility] Test Date: 2022-02-14 Test Time: 11:16:22 Pat Name: ANGELINA HOFFMAN Department: Room: A485 Gender: F [employer]etitive Intelligence Analyst: [id number] : 1950 Requested By: SHAKIRA HAN Order Number: [id number] Reading MD: Nilesh Drake Measurements Intervals [place] Rate: 84 P: 71 NC: 162 QRS: 32 QRSD: 97 T: 4 QT: 392 QTc: 463 Interpretive Statements Sinus rhythm No previous ECG available for comparison Electronically Signed On 02-16-2022 8:46:13 EDT by Nilesh Drake
--- NOTE | 2022-02-16 12:35 | Gastroenterology Progress Note ---
Assessment and Plan 1. GI: UGI bleed with pud on egd - ppi qd - diet destini tolerated - ok to dc - will sign off, call if needed Subjective Date of service: 02/16/22 Principal diagnosis: Lower GI bleed Interval history: - pt denies signs bleeding overnight Objective - Constitutional Vitals: Temp Pulse Resp BP Pulse Ox 98.6 F 81 16 124/57 98 02/16/22 04:06 02/16/22 08:00 02/16/22 04:06 02/16/22 04:06 02/16/22 04:06 General appearance: no acute distress - EENT Eyes: PERRL - Respiratory Respiratory: bilateral: CTA - Cardiovascular Rhythm: regular Heart Sounds: Present: S1 & S2 - Gastrointestinal General gastrointestinal: Present: soft, non-tender, non-distended - Labs CBC & Chem 7: 02/15/22 22:26 02/15/22 03:39 Labs: Laboratory Results - last 24 hr 02/15/22 02/15/22 13:06 22:26 Hgb 7.4 L 7.0 L Hct 21.8 L 20.8 L
== END 2022-02-16 09:10 | disposition home or self-care (01) | DRG 378 ==
LOC: ED 21:26 → 4A 02-14 14:46
PROVIDERS: ADMIT Internal Medicine; ATTEND Internal Medicine
PROC: 30233N1 Transfusion of Nonautologous Red Blood Cells into Peripheral Vein, Percutaneous Approach (ICD-10-PCS; principal; 2022-02-14)
PROC: 0DJ08ZZ Inspection of Upper Intestinal Tract, Via Natural or Artificial Opening Endoscopic (ICD-10-PCS; 2022-02-15)
PROC: 0DJD8ZZ Inspection of Lower Intestinal Tract, Via Natural or Artificial Opening Endoscopic (ICD-10-PCS; 2022-02-15)
DX: K57.31 Diverticulosis of large intestine without perforation or abscess with bleeding (principal); D62 Acute posthemorrhagic anemia; K64.8 Other hemorrhoids; D64.9 Anemia, unspecified; K29.70 Gastritis, unspecified, without bleeding; Z79.899 Other long term (current) drug therapy; Z82.49 Family history of ischemic heart disease and other diseases of the circulatory system
CPT/HCPCS: 36415; 74174; 80048; 82271; 85014; 85018; 85025; 86850; 86900; 86901; 86920; 93005; G0378; C9113; J0171; J2704; J7030; J7040; P9016; Q9967